=== PATIENT | male | born 1990 | race Caucasian/White ===

== ENCOUNTER 2025-02-18 13:11 | Inpatient (IN) | payer OTHER ==
[~2025-02-18] VITALS: Ht 175.3 cm; Wt 76.0 kg
[2025-02-18] MEDS: DOXYCYCLINE HYCLATE 100 MG TABLET PO ONE (14:49)
[2025-02-18] MEDS: CEPHALEXIN MONOHYDRATE 500 MG CAPSULE PO ONE (14:50)
[2025-02-18] MEDS: LIDOCAINE 1% 10 ML VIAL SQ ONE (14:52)
[2025-02-18 15:00] LABS: PLATELET COUNT (AUTO) 308 K/uL (150-450); RED BLOOD CELL COUNT(AUTO) 4.51 MIL/uL (4.50-5.90); RED CELL DISTRIBUTION WIDTH 13.9 % (11.5-14.5); WHITE BLOOD COUNT (AUTO) 5.0 K/uL (4.5-11.0)
[2025-02-18 15:05] LABS: CALCIUM, TOTAL 8.6 mg/dL (8.8-10.5); CREATININE 1.01 mg/dL (0.60-1.30); GLOMERULAR FILTR. RATE CALC > 60 mL/min (>60); GLUCOSE,RANDOM 97 mg/dL (70-110); SODIUM SERUM 137 mmol/L (136-145); UREA NITROGEN, BLOOD 13 mg/dL (7-18)
[2025-02-18 15:08] LABS: APPEARANCE,URINE CLEAR (CLEAR); GLUCOSE, URINE (UA) NEGATIVE (NEGATIVE); LEUKOCYTE ESTERASE ,URINE NEGATIVE (NEGATIVE); NITRATE,URINE NEGATIVE (NEGATIVE); OCCULT BLOOD,URINE NEGATIVE (NEGATIVE); PH,URINE DRUG SCREEN 6.5 (5.0-8.0); SPECIFIC GRAVITIY, URINE 1.028 (1.003-1.030)
[2025-02-18 15:14] LABS: LACTIC ACID 0.7 mmol/L (0.4-2.0)
[2025-02-18] MEDS ORDERED: ZOLPIDEM TARTRATE 5 MG TABLET PO PRN (15:15)
[2025-02-18] MEDS ORDERED: MAGNESIUM HYDROXIDE SUSPENSION 30 ML UDCUP PO PRN (15:15)
[2025-02-18] MEDS ORDERED: LOPERAMIDE HCL 2 MG CAPSULE PO PRN (15:15)
[2025-02-18] MEDS ORDERED: ACETAMINOPHEN 325 MG TABLET PO PRN (15:15)
[2025-02-18] MEDS ORDERED: METOCLOPRAMIDE HCL 5 MG/ML 2 ML VIAL IVP PRN (15:15)
[2025-02-18] MEDS ORDERED: ONDANSETRON HCL 4 MG/2 ML VIAL IVP PRN (15:15)
[2025-02-18] MEDS ORDERED: BISACODYL 10 MG RECTAL RECTAL SUPPOSITORY PR PRN (15:15)
[2025-02-18] MEDS ORDERED: DICYCLOMINE HCL 10 MG CAPSULE PO PRN (15:15)
[2025-02-18 15:20] LABS: SQUAMOUS EPITHELIAL CELL,UR None Seen /LPF (None Seen)
[2025-02-18 15:21] LABS: ALCOHOL, URINE DRUG SCREEN NEGATIVE (NEGATIVE); AMPHET/METH SCREEN,URINE POSITIVE (NEGATIVE); BARBITURATE SCREEN, URINE NEGATIVE (NEGATIVE); CANNABINOID SCREEN,URINE NEGATIVE (NEGATIVE); COCAINE SCREEN,URINE NEGATIVE (NEGATIVE); METHADONE SCREEN, URINE NEGATIVE (NEGATIVE)
[2025-02-18] MEDS: VANCOMYCIN 1.5 GM/WATER(PEG) 300 ML IV ONE (15:30)
[2025-02-18] MEDS: HEPARIN SODIUM,PORCINE 5,000 UNITS/ML VIAL SQ SCH (16:00)
[2025-02-18] MEDS ORDERED: SODIUM CHLORIDE 0.9% 500 ML IV ONE (21:34)
[2025-02-18 21:43] VITALS: BP 101/58; PULSE 66; RESP 18; TEMP 97.9; O2SAT 99
[2025-02-18] MEDS: DOCUSATE SODIUM 100 MG CAPSULE PO SCH (21:56)
[2025-02-18] MEDS: TEMAZEPAM 15 MG CAPSULE PO SCH (21:57)
[2025-02-18] MEDS: VANCOMYCIN 1GM/WATER(PEG/NADA) 200 ML IV SCH (23:34)
[2025-02-19 05:08] VITALS: BP 110/69; PULSE 64; RESP 18; TEMP 97.5; O2SAT 98
[2025-02-19 07:14] LABS: PLATELET COUNT (AUTO) 328 K/uL (150-450); RED BLOOD CELL COUNT(AUTO) 4.60 MIL/uL (4.50-5.90); RED CELL DISTRIBUTION WIDTH 13.7 % (11.5-14.5); WHITE BLOOD COUNT (AUTO) 6.5 K/uL (4.5-11.0)
[2025-02-19 07:24] LABS: CALCIUM, TOTAL 8.2 mg/dL (8.8-10.5); CREATININE 0.86 mg/dL (0.60-1.30); GLOMERULAR FILTR. RATE CALC > 60 mL/min (>60); GLUCOSE,RANDOM 105 mg/dL (70-110); SODIUM SERUM 137 mmol/L (136-145); UREA NITROGEN, BLOOD 12 mg/dL (7-18)
[2025-02-19] MEDS: PANTOPRAZOLE SODIUM 40 MG DR TABLET PO SCH (08:49)
[2025-02-19 08:53] VITALS: BP_SYST 134; BP_SYST 147; BP_DIAS 80; BP_DIAS 81; PULSE 60; PULSE 71; RESP 18; RESP 20; TEMP 98.1; O2SAT 96; O2SAT 99
[2025-02-19 19:38] VITALS: BP 122/71; PULSE 72; RESP 18; TEMP 98.2; O2SAT 97
[2025-02-20 04:57] VITALS: BP 118/76; PULSE 68; RESP 18; TEMP 97.7; O2SAT 98
[2025-02-20 07:27] LABS: PLATELET COUNT (AUTO) 328 K/uL (150-450); RED BLOOD CELL COUNT(AUTO) 4.89 MIL/uL (4.50-5.90); RED CELL DISTRIBUTION WIDTH 13.7 % (11.5-14.5); WHITE BLOOD COUNT (AUTO) 6.3 K/uL (4.5-11.0)
[2025-02-20 07:29] LABS: CALCIUM, TOTAL 8.5 mg/dL (8.8-10.5); CREATININE 0.92 mg/dL (0.60-1.30); GLOMERULAR FILTR. RATE CALC > 60 mL/min (>60); GLUCOSE,RANDOM 83 mg/dL (70-110); SODIUM SERUM 138 mmol/L (136-145); UREA NITROGEN, BLOOD 16 mg/dL (7-18)
[2025-02-20 07:50] VITALS: BP 116/79; PULSE 63; RESP 18; TEMP 97.9; O2SAT 98
[2025-02-20] MEDS: LORazepam 2 MG/ML VIAL IVP PRN (09:10)
[2025-02-20 19:46] VITALS: BP 115/69; PULSE 85; RESP 18; TEMP 97.9; O2SAT 99
[2025-02-21 05:34] VITALS: BP 100/63; PULSE 64; RESP 18; TEMP 97.9; O2SAT 98
[2025-02-21 07:04] LABS: PLATELET COUNT (AUTO) 342 K/uL (150-450); RED BLOOD CELL COUNT(AUTO) 4.96 MIL/uL (4.50-5.90); RED CELL DISTRIBUTION WIDTH 13.7 % (11.5-14.5); WHITE BLOOD COUNT (AUTO) 6.6 K/uL (4.5-11.0)
[2025-02-21 07:05] LABS: CALCIUM, TOTAL 8.5 mg/dL (8.8-10.5); CREATININE 0.82 mg/dL (0.60-1.30); GLOMERULAR FILTR. RATE CALC > 60 mL/min (>60); GLUCOSE,RANDOM 93 mg/dL (70-110); SODIUM SERUM 138 mmol/L (136-145); UREA NITROGEN, BLOOD 16 mg/dL (7-18)
[2025-02-21 08:21] VITALS: BP 115/71; PULSE 68; RESP 18; TEMP 97.9; O2SAT 100
[2025-02-21 15:45] VITALS: BP 120/70; PULSE 81; RESP 18; TEMP 97.9; O2SAT 100
== END 2025-02-21 20:30 | DRG 603 ==
LOC: EMS 13:14 → EDH 15:05 → 6S 21:20
PROVIDERS: ADMIT Internal Medicine; ATTEND Internal Medicine
PROC: 0Y9C3ZZ Drainage of Right Upper Leg, Percutaneous Approach (ICD-10-PCS; principal; 2025-02-18)
DX: L02.415 Cutaneous abscess of right lower limb (principal); F15.13 Other stimulant abuse with withdrawal
CPT/HCPCS: 80048; 80202; 80307; 81001; 83605; 83690; 85025; 87070; 87186; 87205; 96365; 96366; 96372; 99285; J1644; J2060; J3490; J7040; 36415-L1; 36415-TC